=== PATIENT | female | born 1960 | race Caucasian/White ===

== ENCOUNTER 2019-01-11 11:47 | Inpatient (IN) | payer BC, OTHER ==
[~2019-01-11] VITALS: Ht 165.1 cm; Wt 97.4 kg
--- NOTE | 2019-01-11 11:50 | NUR ---
PATIENT ARRIVES FROM [facility] VIA [facility]. SHE HAD CHEST PAIN THAT BEGAN 01/07, THEN SHE WAS HOSPITALIZED AND STRESS TEST POSITIVE AND FOR WHATEVER REASON SHE WAS DISCHARGED YESTERDAY. TODAY, CHEST PAIN GOT WORSE SHE RETURNED TO [facility], AND THEY SENT HER HERE. PLACED PATIENT ON MONITOR. EKG IN PLACE. VSS. AOX4.
--- NOTE | 2019-01-11 12:07 | NUR ---
IN ROUTE PATIETN WAS ON HEPARIN GTT, HAD NITRO X2, HAD VERSED, AND TOOK ASPIRIN THIS MORNING. WILL GIVE ORDERED MORPHINE BUT WILL WAIT ON NITRO SL AT THIS TIME BP IS CLOSE TO NORMAL LIMITS AND MORPHINE COULD EFFECT THIS, CHEST PAIN MINIMAL 4 OF 10
[2019-01-11] MEDS ORDERED: MORPHINE SULFATE 4 MG/ML, 1ML ONE (12:11)
[2019-01-11] MEDS ORDERED: HEPARIN 25,000 UNITS/500ML PMX 500 ML ONE (12:12)
[2019-01-11] MEDS ORDERED: MORPHINE SULFATE 4 MG/ML, 1ML IVPush PRN (12:30)
[2019-01-11] MEDS ORDERED: PLEASE ENTER ALLERGIES MC SCH (12:30)
[2019-01-11] MEDS ORDERED: NITROGLYCERIN SINGLE TAB 0.4 MG SL PRN (12:30)
[2019-01-11 12:37] LABS: BASOPHILS # (AUTO) 0.02 x10^3/uL (0-0.1); BASOPHILS % (AUTO) 1 % (0-1); EOSINOPHILS # (AUTO) 0.07 x10^3/uL (0-0.4); EOSINOPHILS % (AUTO) 2 % (1-7); LYMPHOCYTES # (AUTO) 1.28 x10^3/uL (1-3.4); LYMPHOCYTES % (AUTO) 30 % (22-44); MD NO; MEAN CORPUSCULAR HEMOGLOBIN 31.1 pg (27.0-34.8); MEAN CORPUSCULAR HGB CONC 33.9 g/dL (32.4-35.8); MEAN CORPUSCULAR VOLUME 91.7 fL (80-100); MEAN PLATELET VOLUME 9.4 fL (7.4-10.4); MONOCYTES # (AUTO) 0.22 x10^3/uL (0.2-0.8); MONOCYTES % (AUTO) 5 % (2-9); NEUTROPHILS # (AUTO) 2.68 x10^3/uL (1.8-6.8); NEUTROPHILS % (AUTO) 63 % (42-75); PLATELET COUNT 184 x10^3/uL (130-400); RED BLOOD COUNT 4.59 x10^6/uL (3.82-5.3)
[2019-01-11 12:46] LABS: ANION GAP 6 mmol/L (5-15); CALCIUM 8.9 mg/dL (8.5-10.1); CHLORIDE 113 mmol/L (98-107)
[2019-01-11 12:50] LABS: TROPONIN I < 0.015 ng/mL (0.000-0.045)
[2019-01-11] MEDS: HEPARIN 25,000 UNITS/500ML PMX 500 ML IV PRN (12:56)
--- NOTE | 2019-01-11 12:59 | NUR ---
PATIENT TALKING TO LONGTIME FRIEND AT BEDSIDE. VSS. AWAITING ER OUTCOME.
[2019-01-11] MEDS ORDERED: HEPARIN 5,000 UNITS/ML, 1ML IV ONE (13:00)
[2019-01-11] MEDS: METOPROLOL SUCCINATE 25 MG TAB.ER.24H PO SCH (14:00)
--- NOTE | 2019-01-11 14:21 | NUR ---
patient report given to Veronique. patient rtg. sbar.
[2019-01-11 14:27] LABS: CHOL/HDL RATIO 5.3; LDL/HDL RATIO 3.3 (0.5-3.0)
[2019-01-11 14:47] VITALS: BP 115/78
[2019-01-11] MEDS ORDERED: LEVO150T PO (15:24)
[2019-01-11] MEDS ORDERED: LEVO300T2 PO (15:24)
[2019-01-11] MEDS ORDERED: LIOT5TAB10 PO (15:24)
[2019-01-11] MEDS ORDERED: LEVOTHYROXINE SODIUM 300 MCG PO SCH (15:30)
[2019-01-11] MEDS ORDERED: ONDANSETRON 2MG/ML, 2ML IVP PRN (15:30)
[2019-01-11] MEDS ORDERED: LEVOTHYROXINE 150 MCG TABLET PO SCH ×2 (15:30→15:39)
[2019-01-11] MEDS ORDERED: ACETAMINOPHEN 650 MG/20.3 ML UDC PO PRN (15:30)
[2019-01-11 18:51] VITALS: BP 125/83
[2019-01-11] MEDS ORDERED: NITROGLYCERIN 0.4 MG BOTTLE (25 TABS) SL ONE (18:54)
[2019-01-11] MEDS ORDERED: NITROGLYCERIN 0.4 MG BOTTLE (25 TABS) SL PRN (19:00)
[2019-01-11] MEDS ORDERED: NITROGLYCERIN 0.4 MG/SPRAY SL PRN (19:00)
[2019-01-11] MEDS: morphine SULFATE 10 MG/ML, 1ML IV PRN ×2 (19:26→21:50)
[2019-01-11 20:26] VITALS: BP 106/70
[2019-01-11] MEDS: ATORVASTATIN 40 MG TABLET PO SCH (21:50)
[2019-01-11] MEDS: SODIUM CHLORIDE FLUSH 10ML SYR IVF SCH (21:51)
[2019-01-11] MEDS: HEPARIN 5,000 UNITS/ML, 1ML IV PRN (22:06)
[2019-01-12 01:14] VITALS: BP 111/77
[2019-01-12] MEDS: METOPROLOL SUCCINATE 25 MG TAB.ER.24H PO SCH (05:05)
[2019-01-12] MEDS: ASPIRIN 81 MG TABLET EC PO SCH (05:05)
[2019-01-12] MEDS: HEPARIN 5,000 UNITS/ML, 1ML IV PRN (05:46)
[2019-01-12 06:57] VITALS: BP 119/78
[2019-01-12] MEDS: SODIUM CHLORIDE FLUSH 10ML SYR IVF SCH ×2 (08:02→20:38)
[2019-01-12] MEDS: LEVOTHYROXINE 150 MCG TABLET PO SCH (08:02)
[2019-01-12] MEDS: LIOTHYRONINE 5 MCG TABLET PO SCH (08:02)
[2019-01-12] MEDS ORDERED: ACETAMINOPHEN 325 MG TABLET PO PRN (11:00)
[2019-01-12] MEDS ORDERED: ACETAMINOPHEN 325 MG TABLET ONE (11:08)
[2019-01-12] MEDS: HEPARIN 25,000 UNITS/500ML PMX 500 ML IV PRN (13:13)
[2019-01-12] MEDS ORDERED: FENTANYL PF 100 MCG/2ML ONE (14:39)
[2019-01-12] MEDS ORDERED: HEPARIN 1,000 UNITS/ML, 10ML ONE (14:39)
[2019-01-12] MEDS ORDERED: BIVALIRUDIN 250 MG ONE (14:39)
[2019-01-12] MEDS ORDERED: MIDAZOLAM 1 MG/ML, 5ML ONE (14:39)
[2019-01-12] MEDS ORDERED: LIDOCAINE-MPF 1%, 5ML ONE (14:39)
[2019-01-12] MEDS ORDERED: VERAPAMIL 2.5 MG/ML, 2ML ONE (14:39)
[2019-01-12] MEDS ORDERED: TICAGRELOR 90 MG TABLET ONE (14:39)
[2019-01-12 15:45] VITALS: BP 121/84
[2019-01-12 20:14] VITALS: BP 116/77
[2019-01-12] MEDS: ATORVASTATIN 40 MG TABLET PO SCH (20:39)
[2019-01-13 01:09] VITALS: BP 108/66
[2019-01-13] MEDS: ASPIRIN 81 MG TABLET EC PO SCH (05:01)
[2019-01-13] MEDS: METOPROLOL SUCCINATE 25 MG TAB.ER.24H PO SCH (05:01)
[2019-01-13] MEDS: LEVOTHYROXINE 150 MCG TABLET PO SCH (05:01)
[2019-01-13 05:02] VITALS: BP 119/82
[2019-01-13 07:30] VITALS: BP 107/72
[2019-01-13] MEDS: LIOTHYRONINE 5 MCG TABLET PO SCH (08:24)
[2019-01-13] MEDS ORDERED: SIMV20TA PO (09:40)
[2019-01-15] MEDS ORDERED: LEVOTHYROXINE 150 MCG TABLET PO SCH (06:00)
== END 2019-01-13 12:09 | disposition home or self-care (01) | DRG 206 ==
LOC: EDBD 11:47 → ED 14:27 → 5SO 14:51 → DCLOUNGE 01-13 11:55
PROVIDERS: ADMIT Hospitalist; ATTEND Hospitalist
PROC: 4A023N7 Measurement of Cardiac Sampling and Pressure, Left Heart, Percutaneous Approach (ICD-10-PCS; principal; 2019-01-12)
PROC: B2111ZZ Fluoroscopy of Multiple Coronary Arteries using Low Osmolar Contrast (ICD-10-PCS; 2019-01-12)
DX: M94.0 Chondrocostal junction syndrome [Tietze] (principal); E06.3 Autoimmune thyroiditis; E66.9 Obesity, unspecified; E78.5 Hyperlipidemia, unspecified; F17.210 Nicotine dependence, cigarettes, uncomplicated; F41.9 Anxiety disorder, unspecified; Z79.82 Long term (current) use of aspirin; Z80.6 Family history of leukemia; Z81.8 Family history of other mental and behavioral disorders; Z82.49 Family history of ischemic heart disease and other diseases of the circulatory system; Z82.5 Family history of asthma and other chronic lower respiratory diseases; Z90.710 Acquired absence of both cervix and uterus; Z68.35 Body mass index [BMI] 35.0-35.9, adult; Z71.6 Tobacco abuse counseling
CPT/HCPCS: 36415; 71045; 80048; 80061; 82040; 84443; 84484; 85025; 85520; 93005; 93306; 93458; 96374; 99156; 99285; C1769; C1894; G0378; J0583; J1644; J2250; J3010; J2270; Q9967